=== PATIENT | male | born 1990 | race Caucasian/White ===

== ENCOUNTER 2016-11-13 14:11 | Emergency (ER) | payer SELFPAY ==
[~2016-11-13] VITALS: Ht 185.4 cm; Wt 69.3 kg
[2016-11-13 14:21] VITALS: BP 134/80; PULSE 77; RESP 16; TEMP 99; O2SAT 96
[2016-11-13] MEDS ORDERED: MECL-62 PO (14:44)
[2016-11-13] MEDS ORDERED: ZOFR4TAB PO (14:44)
--- NOTE | 2016-11-13 14:48 | PD ---
HPI Chief Complaint: Dizziness Time Seen by Provider: 14:32 Travel History International Travel<30 days: No Contact w/Intl Traveler<30days: No Traveled to known affect area: No History of Present Illness HPI This patient complains of having some runny nose and congestion and pressure in his years. He has a room spinning dizziness. Worse with position change. No headache or fever. Symptoms severity is moderate PFSH Past Medical History Diminished Hearing: No Tetanus Vaccination: Unknown Influenza Vaccination: No Social History Alcohol Use: No Tobacco Use: Yes (CIGARS) Substance Use: No Allergies-Medications (Allergen,Severity, Reaction): Coded Allergies: No Known Allergies (Unverified , 11/13/16) Reported Meds & Prescriptions Reported Meds & Active Scripts Active No Active Prescriptions or Reported Medications Review of Systems General / Constitutional: No: Fever HENT: Positive: Vertigo, No: Headaches Cardiovascular: No: Diaphoresis Gastrointestinal: Positive: Nausea Physical Exam Narrative NEUROLOGICAL: Awake and alert. Pupils are equal round and reactive. Motor and sensory grossly within normal limits. Five out of 5 muscle strength in all muscle groups. Normal speech. NECK: Symmetrical appearance, midline trachea. No mass or crepitus. Thyroid without enlargement, tenderness, or mass. Throat clear Left TM normal Right TM has clear fluid behind it but no redness Psych: Normal mood and affect. Normal insight and judgment. Data Data Last Documented VS Vital Signs Date Time Temp Pulse Resp B/P Pulse Ox O2 Delivery O2 Flow Rate FiO2 11/13/16 14:33 16 11/13/16 14:21 99.0 77 134/80 96 MDM Medical Decision Making Medical Screen Exam Complete: Yes Emergency Medical Condition: Yes Medical Record Reviewed: Yes Differential Diagnosis Vertigo, labyrinthitis, otitis Narrative Course I have reviewed the patient's electronic medical record. Presentation seems most consistent with acute viral illness causing some fluid buildup behind his right ear drum. May have a degree of labyrinthitis Has some positional vertigo with normal neurologic exam Prescribe some Zofran and meclizine The patient was advised to follow up with their physician and return if they worsen. The patient was warned about potential sedation for the medications they will receive on prescription. Diagnosis Primary Impression: Positional vertigo of right ear Additional Impression: Viral URI Additional Instructions: The patient was advised to follow up with their physician and return if they worsen. The patient was warned about potential sedation for the medications they will receive on prescription. Med/Other Pt SpecificInfo: Prescription(s) given Scripts Meclizine 25 Mg Tab25 Mg PO TID PRN (VERTIGO) #20 TAB Ref 0 Prov:Jimmie Gutiérrez MD 11/13/16 Ondansetron (Zofran)4 Mg Tab4 Mg PO Q6HR PRN (NAUSEA OR VOMITING) #12 TAB Ref 0 Prov:Jimmie Gutiérrez MD 11/13/16 Disposition: 01 DISCHARGE HOME Condition: Stable Jimmie Gutiérrez MD Nov 13, 2016 14:48
== END 2016-11-13 15:13 | disposition home or self-care (01) ==
LOC: PHED 14:11
DX: R42 Dizziness and giddiness (principal); J06.9 Acute upper respiratory infection, unspecified; Z72.0 Tobacco use
CPT/HCPCS: 99283

== ENCOUNTER 2017-08-27 03:37 | Emergency (ER) | payer SELFPAY ==
[2017-08-27] MEDS: IBUPROFEN 800 MG TAB PO (05:00)
== END 2017-08-27 05:50 | disposition left against medical advice (07) ==
LOC: PHED 05:50
DX: M79.1 Myalgia (principal); R05 Cough; R11.0 Nausea; F17.290 Nicotine dependence, other tobacco product, uncomplicated
CPT/HCPCS: 87804; 87804-59; 99283